=== PATIENT | female | born 1995 | race Two or more races ===

== ENCOUNTER 2021-08-08 12:53 | Emergency (ER) | payer SELFPAY ==
[~2021-08-08] VITALS: Ht 165.1 cm; Wt 85.0 kg
[2021-08-08 13:44] LABS: BILIRUBIN,URINE SMALL (NEG); CLARITY,URINE CLOUDY; COLOR,URINE YELLOW; NITRITE,URINE NEGATIVE (NEG); PH,URINE 5.5 (<5.0-8.0); PROTEIN,URINE NEGATIVE (NEG-TRACE); UROBILINOGEN,URINE 0.2 mg/dL (0.2 mg/dL)
[2021-08-08 14:00] LABS: BACTERIA,URINE MODERATE /HPF (0-FEW); RBC,URINE OCC /HPF (0-2)
[2021-08-08] MEDS ORDERED: IBUP-1007 PO (14:09)
[2021-08-08] MEDS ORDERED: METR-34 PO (14:09)
[2021-08-08] MEDS ORDERED: DOXY100C3 PO (14:09)
--- NOTE | 2021-08-08 14:16 | PHYS DOC ---
Past Medical History Past Surgical History: No Surgical History Smoking Status: Never Smoker Alcohol Use: None General Adult EDM: Chief Complaint: VAGINAL BLEEDING HPI: HPI: Patient is a 26-year-old female presents to the emergency department complaining of light pink spotting after urination this morning. Patient reports she is however has not had any OB follow-up. Reports her last menstrual cycle with normal duration of flow was 14 June. Patient denies vaginal discharge, vaginal itching, or STI concerns. Patient denies pelvic pain. Patient reports nausea with vomiting each morning for the past 4 weeks. Patient states it resolves towards the afternoon. Patient denies seeing any blood in her vomitus. Patient denies constipation or diarrhea. Patient denies chest pains, shortness of breath, chest or nasal congestion. Patient denies other physical complaints or physical concerns Review of Systems: Review of Systems: 14 body systems of review of systems have been reviewed. See HPI for pertinent positives and negative responses, otherwise all other systems are negative, nonpertinent or noncontributory. Constitutional: Negative except as outlined in HPI above. Skin: Negative except as outlined in HPI above. Eyes: Negative except as outlined in HPI above. HENT: Negative except as outlined in HPI above. Respiratory: Negative except as outlined in HPI above. Cardiovascular: Negative except as outlined in HPI above. GI: Negative except as outlined in HPI above. : Negative except as outlined in HPI above. Musculoskeletal: Negative except as outlined in HPI above. Integument: Negative except as outlined in HPI above. Neurologic: Negative except as outlined in HPI above. Endocrine: Negative except as outlined in HPI above. Lymphatic: Negative except as outlined in HPI above. Psychiatric: Negative except as outlined in HPI above. Heart Score: C/O Chest Pain: No Risk Factors: Risk Factors: DM, Current or recent (<one month) smoker, HTN, HLP, family history of CAD, obesity. Risk Scores: Score 0 - 3: 2.5% MACE over next 6 weeks - Discharge Home Score 4 - 6: 20.3% MACE over next 6 weeks - Admit for Clinical Observation Score 7 - 10: 72.7% MACE over next 6 weeks - Early Invasive Strategies Allergies: Allergies: Allergies Coded Allergies Type Severity Reaction Last Updated Verified No Known Drug Allergies 08/08/21 No Physical Exam: PE: Constitutional: Well developed, well nourished, no acute distress, non-toxic appearance. 26-year-old female in no apparent distress. HENT: Normocephalic, atraumatic. Eyes: Conjunctiva normal, no discharge. Neck: Normal range of motion. Cardiovascular: Distal cap refill less than 2 seconds, no cyanosis appreciated. Lungs & Thorax: Patient is in no respiratory distress, no adventitious lung sounds appreciated. Abdomen: Bowel sounds normal, soft, no tenderness, no masses, no pulsatile masses. No bruising or skin discoloration of the abdomen. Skin: Warm, dry, no erythema, no rash. Back: No tenderness, no CVA tenderness. Extremities: No tenderness, no cyanosis, no clubbing, ROM intact, no edema. Neurologic: Alert and oriented X 3, normal motor function, normal sensory func tion, no focal deficits noted. Psychologic: Affect normal, judgement normal, mood normal. : Pelvic exam performed with ED nurse at bedside for strategy execution consultant, external vaginal structures within normal limits, no lesions, no rashes, no discharge appreciated, speculum exam reveals pink moist vaginal lutz, the cervical os is closed, no bleeding in the vaginal vault, no discharge appreciated. No left or right-sided adnexal tenderness. Current Patient Data: Labs: Laboratory Tests Test 08/08/21 13:12 POC Urine HCG, Qualitative Hcg positive (Negative) Vital Signs: Vital Signs Date Time Temp Pulse Resp B/P (MAP) Pulse Ox O2 Delivery O2 Flow Rate FiO2 08/08/21 13:28 97.8 80 15 122/66 (84) 98 Room Air 97.8 EKG: EKG: [] Radiology/Procedures: Radiology/Procedures: PATIENT: DALIA MOSS CACCOUNT: [id number] : 1995 LOCATION: ER AGE: 26 SEX: F EXAM STATUS: REG ER ORD. PHYSICIAN: SHAHBAZ JUAREZ APRN REASON: Vaginal bleeding less than 14 weeks PROCEDURE: OB < 14 WKS US OB <14 WKS +TV History: Vaginal bleeding in , less than 14 weeks. Comparison: None. Technique: Sonographic examination of the pelvis was performed with transabdominal technique. Findings: The uterus is normal in size and echogenicity, measuring 8.6 x 5.6 x 6.5 cm. The uterus contains a single gestational sac with normal shape. A pole is identified with crown-rump length measuring 1.23 cm, corresponding to a gestational age of 7 weeks 3 days. There is no evidence of perigestational hemorrhage. The heart rate measures 140. The right ovary is normal in size and echogenicity, measuring 2.0 x 2.7 x 2.0 cm. The left ovary is normal in size and echogenicity, measuring 4.1 x 2.1 x 1.8 cm. There is a left ovarian corpus luteum measuring approximately 2.5 cm diameter. There is no evidence of adnexal mass or free fluid. Impression: 1. No evidence of acute pelvic pathology. 2. Single live intrauterine gestation with crown-rump length corresponding to a gestational age of 7 weeks 3 days, MONI 03/24/2022.. Electronically signed by: Davidson Salazar MD (08/08/2021 5:08 PM) [id number] Course & Med Decision Making: Course & Med Decision Making Pertinent Labs and Imaging studies reviewed. (See chart for details) 26-year-old female, vital signs reviewed, presents emergency department con cerning vaginal spotting this morning that resolved prior to arrival to the emergency department. Patient does not have OB care established. Patient is unsure how far along she is. Will order pelvic ultrasound, urinalysis assay, ABO and type, CBC, BMP. Urine test Patient is , awaiting OB ultrasound at this time. OB ultrasound reveals intrauterine 7-week 3 days estimation. The patient's hCG level 93,875. The patient is AB+, RhoGam not indicated. The patient's urine positive leukocyte Estrace, will treat for urinary tract infection. The patient cervical os is closed, there was no blood appreciated in the vaginal vault. We will diagnosed with threatened miscarriage, low likelihood that blood came from urine as there is no blood in the urinalysis assay. Discussed with patient strict follow-up with STOREHOUSE CLERK care for reevaluation of hCG level in [address] Castro for STOREHOUSE CLERK recommendation. Strict return to ER precautions. Will start on vitamin, patient is amenable to ED discharge planning. Discussed with the patient all findings and diagnostic testing as well as the need to follow-up with their primary care provider for further evaluation and treatment or return to the ED if any new or worsening symptoms. Strict return precautions were also discussed at length, the patient voiced understanding and agreement with the discharge planning. The patient was nontoxic in appearance, in no apparent distress, and hemodynamically stable at the time of disposition. Dragon Disclaimer: Dragon Disclaimer: This electronic medical record was generated, in whole or in part, using a voice recognition dictation system. Departure Departure Impression: Primary Impression: Threatened miscarriage Disposition: HOME / SELF CARE / HOMELESS Condition: GOOD Referrals: SHAHBAZ CASTRO MD Patient Instructions: Threatened Miscarriage Additional Instructions: You were seen today in the emergency department for vaginal spotting. An extensive pelvic examination was done today in the emergency department to include an ultrasound that showed a healthy intrauterine at approximately 7 weeks 3 days. Your beta hCG level is 93,875. You should have this level redrawn in 3 days with your STOREHOUSE CLERK specialist. I am providing you an STOREHOUSE CLERK specialist Dr. Castro to follow-up with, please see soon, however you may see any STOREHOUSE CLERK specialist of your choice. I am starting you on nausea medication and a vitamin, please take the vitamin daily while you are , use the nausea medication only if you are nauseated. You also have a urinary tract infection that I am prescribing you medication for, please take as directed. Please return immediately to the emergency department for increased abdominal pain, a sudden onset of bright red bleeding vaginally, or other concerns. Discussed with the patient all findings and diagnostic testing as well as the need to follow-up with their primary care provider for further evaluation and treatment or return to the ED if any new or worsening symptoms. Strict return precautions were also discussed at length, the patient voiced understanding and agreement with the discharge planning. The patient was nontoxic in appearance, in no apparent distress, and hemodynamically stable at the time of disposition. Hoy la atendieron en el departamento de emergencias por un manchado vaginal. Hoy se realiz un examen plvico extenso en el departamento de emergencias para incluir kathi ecografa que mostr un embarazo intrauterino saludable aproximadamente a las 7 semanas y 3 kwon. Barrientos nivel de beta hCG es 93,875. Debera volver a trazar dai nivel en 3 kwon con barrientos especialista en obstetricia / ginecologa. Le proporciono un especialista en obstetricia / ginecologa, el Dr. Castro, para que realice un seguimiento; consulte pronto, sin embargo, puede mao a cualquier especialista en obstetricia y ginecologa de barrientos eleccin. Le estoy comenzando a jose un medicamento para las nuseas y kathi vitamina , por favor tome la vitamina a diario mientras est embarazada, use el medicamento para las nuseas solo si tiene nuseas. Soni tiene kathi infeccin del tracto urinario para la que le estoy recetando medicamentos; tmela segn las indicaciones. Regrese de inmediato al departamento de emergencias si tiene un aumento del dolor abdominal, un sangrado vaginal raygoza brillante de inicio repentino u otras inquietudes. Discuti con el paciente todos los hallazgos y las pruebas de diagnstico, as bernice la necesidad de hacer un seguimiento con barrientos proveedor de atencin primaria para kathi evaluacin y tratamiento adicionales o regresar al servicio de urgencias si hay sntomas nuevos o que empeoran. Soni se discutieron detenidamente las estrictas precauciones de retorno, y el paciente expres barrientos comprensin y acuerdo con la planificacin del tomas. El paciente no era txico en apariencia, sin malestar aparente y hemodinmicamente estable en el momento de la disposicin. Scripts [facility] Cmb#95/Ferrous Fumarate/Fa ( TABLET) 1 Each Tablet 1 TAB PO DAILY for for 30 Days, #30 TAB Prov: SHAHBAZ JUAREZ A REGULATORY SCIENTIST 08/08/21 Ondansetron (ONDANSETRON ODT) 4 Mg Tab.rapdis 1 TAB PO PRN Q6-8HRS for nausea, #16 TAB 0 Refills Prov: SHAHBAZ JUAREZ APRN 08/08/21 Cephalexin (CEPHALEXIN) 500 Mg Tablet 1 TAB PO TID for uti for 5 Days, #15 TAB 0 Refills Prov: SHAHBAZ JUAREZ APRN 08/08/21 SHAHBAZ JUAREZ APRN Aug 08, 2021 14:16
[2021-08-08 16:00] LABS: BASO # 0.1 x10^3/uL (0.0-0.2); BASO % 1 % (0-3); EOS % 0 % (0-3); HEMATOCRIT 39.2 % (36.0-47.0); LYMPH # 2.6 x10^3/uL (1.0-4.8); LYMPH % 26 % (24-48); MEAN CORPUSCULAR HEMOGLOBIN 29 pg (25-35); MEAN CORPUSCULAR HGB CONC 33 g/dL (31-37); MEAN CORPUSCULAR VOLUME 87 fL (79-100); MONO # 0.8 x10^3/uL (0.0-1.1); MONO % 8 % (0-9); NEUT # 6.7 x10^3/uL (1.8-7.7); NEUT % 66 % (31-73); PLATELET COUNT 168 x10^3/uL (140-400); RED BLOOD COUNT 4.49 x10^6/uL (3.50-5.40); RED CELL DISTRIBUTION WIDTH 15.1 % (11.5-14.5); WHITE BLOOD COUNT 10.3 x10^3/uL (4.0-11.0)
[2021-08-08 16:01] LABS: CALCIUM 9.1 mg/dL (8.5-10.1); CREATININE 0.7 mg/dL (0.6-1.0); POTASSIUM 3.5 mmol/L (3.5-5.1)
[2021-08-08 16:09] LABS: ALBUMIN/GLOBULIN RATIO 1.1 (1.0-1.7); TOTAL BILIRUBIN 0.4 mg/dL (0.2-1.0); TOTAL PROTEIN 7.8 g/dL (6.4-8.2)
--- NOTE | 2021-08-08 17:10 | RAD ---
US OB <14 WKS +TV History: Vaginal bleeding in , less than 14 weeks. Comparison: None. Technique: Sonographic examination of the pelvis was performed with transabdominal technique. Findings: The uterus is normal in size and echogenicity, measuring 8.6 x 5.6 x 6.5 cm. The uterus contains a single gestational sac with normal shape. A pole is identified with crown -rump length measuring 1.23 cm, corresponding to a gestational age of 7 weeks 3 days. There is no evidence of perigestational hemorrhage. The heart rate measures 140. The right ovary is normal in size and echogenicity, measuring 2.0 x 2.7 x 2.0 cm. The left ovary is normal in size and echogenicity, measuring 4.1 x 2.1 x 1.8 cm. There is a left ovar anushka corpus luteum measuring approximately 2.5 cm diameter. There is no evidence of adnexal mass or free fluid. Impression: 1. No evidence of acute pelvic pathology. 2. Single live intrauterine gestation with crown-rump length corresponding to a gestational age of 7 weeks 3 days, MONI 03/24/2022.. Electronically signed by: Davidson Salazar MD (08/08/2021 5:08 PM) [id number]
[2021-08-08 17:30] VITALS: BP 130/74
[2021-08-08] MEDS ORDERED: PNV1TABL25 PO (18:25)
[2021-08-08] MEDS ORDERED: ONDA4TAB12 PO (18:25)
[2021-08-08] MEDS ORDERED: CEPH500T PO (18:25)
== END 2021-08-08 18:44 | disposition home or self-care (01) ==
LOC: ER 12:53
DX: O20.0 Threatened abortion (principal); Z3A.01 Less than 8 weeks gestation of pregnancy
CPT/HCPCS: 36415; 76801; 80053; 81001; 81025; 84702; 85025; 86900; 86901; 87086; 87147; 99284